=== PATIENT | female | born 1970 | race American Indian/Alaskan Native ===

== ENCOUNTER 2017-02-28 10:07 | Emergency (ER) | payer BC ==
[2017-02-28 10:47] VITALS: BP 143/73
--- NOTE | 2017-02-28 12:04 | Emergency Department Report ---
ED Neck Pain/Injury HPI - General Chief Complaint: Neck Pain/Injury Stated Complaint: neck/back pain Time Seen by Provider: 02/28/17 12:03 Source: patient Mode of arrival: Ambulatory Limitations: No Limitations - History of Present Illness MD Complaint: neck pain -: Gradual Place: home Severity: mild Quality: dull Consistency: constant Improves With: none Worsens With: medication Associated Symptoms: none, other. denies: headache, fever, numbness, tingling, weakness, vertigo, difficulty walking, swollen glands, difficulty swallowing, nausea, vomiting - Related Data Home Medications Medication Instructions Recorded Confirmed Last Taken Ibuprofen [Motrin] 800 mg PO PRN PRN 08/09/14 08/15/14 08/08/14 Previous Rx's Medication Instructions Recorded Last Taken Type Docusate Sodium [Colace] 100 mg PO BID PRN #60 capsule 08/16/14 Unknown Rx Ibuprofen [Motrin] 800 mg PO TID PRN #60 tablet 08/16/14 Unknown Rx Oxycodone HCl/Acetaminophen 1 each PO Q6HR PRN #45 tablet 08/16/14 Unknown Rx [Percocet 7.5-325 mg] Cyclobenzaprine [Flexeril] 10 mg PO TID PRN #10 tablet 02/28/17 Unknown Rx methylPREDNISolone [Medrol] 4 mg PO DAILY #1 tab.ds.pk 02/28/17 Unknown Rx traMADol [Ultram] 50 mg PO Q6HR PRN #10 tablet 02/28/17 Unknown Rx Allergies Allergy/AdvReac Type Severity Reaction Status Date / Time pineapple AdvReac Rash Verified 02/28/17 10:44 BROCCOLI Allergy Rash Uncoded 08/15/14 07:19 CHOCOLATE AdvReac Rash Uncoded 08/09/14 14:16 ED Review of Systems ROS: Stated complaint: neck/back pain Other details as noted in HPI Comment: Unobtainable due to pts medical conditions Constitutional: no symptoms reported, see HPI. denies: chills Eyes: as per HPI. denies: eye pain ENT: as per HPI. denies: ear pain, throat pain Respiratory: no symptoms reported, see HPI. denies: cough, orthopnea Cardiovascular: as per HPI. denies: chest pain, palpitations, dyspnea on exertion, orthopnea Endocrine: no symptoms reported, see HPI. denies: excessive sweating, flushing , intolerance to cold, intolerance to heat Gastrointestinal: as per HPI. denies: abdominal pain, nausea, vomiting Genitourinary: as per HPI. denies: urgency, dysuria Musculoskeletal: as per HPI, other (neck pain since . no cp. stiff. pain w turning to r. drove to er. ). denies: back pain Skin: as per HPI. denies: rash, lesions Neurological: as per HPI. denies: headache, weakness Psychiatric: as per HPI. denies: anxiety, depression Hematological/Lymphatic: as per HPI ED Past Medical Hx - Past Medical History Hx Hypertension: No Hx Congestive Heart Failure: No Hx Diabetes: Yes Hx Seizures: No Hx Asthma: No Hx COPD: No - Surgical History Additional Surgical History: Hysterectomy - Social History Smoking Status: Never Smoker Substance Use Type: None - Medications Home Medications: Home Medications Medication Instructions Recorded Confirmed Last Taken Type Ibuprofen [Motrin] 800 mg PO PRN PRN 08/09/14 08/15/14 08/08/14 History Docusate Sodium [Colace] 100 mg PO BID PRN #60 capsule 08/16/14 Unknown Rx Ibuprofen [Motrin] 800 mg PO TID PRN #60 tablet 08/16/14 Unknown Rx Oxycodone HCl/Acetaminophen 1 each PO Q6HR PRN #45 tablet 08/16/14 Unknown Rx [Percocet 7.5-325 mg] Cyclobenzaprine [Flexeril] 10 mg PO TID PRN #10 tablet 02/28/17 Unknown Rx methylPREDNISolone [Medrol] 4 mg PO DAILY #1 tab.ds.pk 02/28/17 Unknown Rx traMADol [Ultram] 50 mg PO Q6HR PRN #10 tablet 02/28/17 Unknown Rx ED Physical Exam - General Limitations: No Limitations General appearance: alert - Head Head exam: Present: atraumatic - Eye Eye exam: Present: PERRL Pupils: Present: normal accommodation - ENT ENT exam: Present: normal exam - Neck Neck exam: Present: normal inspection, full ROM (but stiff when turns to r), other (no mening irr). Absent: tenderness, meningismus, lymphadenopathy, thyromegaly - Expanded Neck Exam Expanded Neck exam: Present: other (no step off. no point tendernss). Absent: midline deformity, anterior neck swelling, thyroid mass, carotid bruit, tracheal deviation - Respiratory Respiratory exam: Present: normal lung sounds bilaterally - Cardiovascular Cardiovascular Exam: Present: regular rate - GI/Abdominal GI/Abdominal exam: Present: soft, normal bowel sounds. Absent: distended, tenderness, guarding, rebound, rigid, diminished bowel sounds - Rectal Rectal exam: Present: deferred - External exam: Present: normal external exam - Extremities Exam Extremities exam: Present: normal inspection - Back Exam Back exam: Present: normal inspection. Absent: full ROM, tenderness, CVA tenderness (R), CVA tenderness (L), muscle spasm - Neurological Exam Neurological exam: Present: alert, oriented X3, CN II-XII intact, normal gait, reflexes normal. Absent: motor sensory deficit - Psychiatric Psychiatric exam: Present: normal affect, normal mood. Absent: depressed, agitated - Skin Skin exam: Present: warm, dry, intact. Absent: normal color, rash ED Course Vital Signs 02/28/17 10:44 Temperature 98.4 F Pulse Rate 88 Respiratory 18 Rate Blood Pressure 143/73 O2 Sat by Pulse 98 Oximetry ED Medical Decision Making - Medical Decision Making torticulus no fall or trauma off metformin bs noted solumedrol home w meds for torticullus drove to er no cp no sob vss no fever Critical care attestation.: If time is entered above; I have spent that time in minutes in the direct care of this critically ill patient, excluding procedure time. ED Disposition Clinical Impression: Torticollis, Diabetes Disposition: DC-01 TO HOME OR SELFCARE Is pt being admited?: No Does the pt Need Aspirin: No Condition: Stable Instructions: Diabetes Mellitus Type 2 in Adults (ED), Spasmodic Torticollis ( ED) Additional Instructions: warm compresses meds as ordered diabetic diet follow blood sugar Prescriptions: Cyclobenzaprine [Flexeril] 10 mg PO TID PRN #10 tablet PRN Reason: Muscle Spasm methylPREDNISolone [Medrol] 4 mg PO DAILY #1 tab.ds.pk traMADol [Ultram] 50 mg PO Q6HR PRN #10 tablet PRN Reason: Pain Referrals: PRIMARY CARE, [Primary Care Provider] - 3-5 Days Time of Disposition: 12:37
== END 2017-02-28 12:57 | disposition home or self-care (01) ==
LOC: ED 10:07
DX: M43.6 Torticollis (principal); E11.9 Type 2 diabetes mellitus without complications
CPT/HCPCS: 82962; 96372; 99282; J2930